=== PATIENT | female | born 1965 | race Caucasian/White ===

== ENCOUNTER 2023-03-31 10:25 | Inpatient (IN) | payer OTHER, SELFPAY ==
[2023-03-31] VITALS (13 sets, daily range): BP systolic 132–172; BP diastolic 76–89; PULSE 66–87; RESP 16–20; TEMP 36.6–36.8; O2SAT 95–100; BMI 27.2
--- NOTE | 2023-03-31 10:26 | XRR_ITS ---
PROCEDURE INFORMATION: Exam: XR Left Hip Exam date and time: 03/31/2023 10:36 AM Age: 57 years old Clinical indication: Injury or trauma; Fall; Blunt trauma (contusions or hematomas); Left; Hip pain. TECHNIQUE: Imaging protocol: Radiologic exam of the left hip. Views: 2 views hip with pelvis when performed. COMPARISON: No relevant prior studies available. FINDINGS: Bones/joints: Impacted fracture of the left femoral neck with considerable varus deformity. The femoral neck is displaced superiorly approximately 1 cm relative to the femoral head. No other osseous abnormalities or fractures involving the left hip. No left hip dislocation. Soft tissues: Unremarkable. XR/XR hip LT 2-3V wo/w pel* [id number] IMPRESSION: Acute left femoral neck fracture as above.
--- NOTE | 2023-03-31 10:26 | XRR_ITS ---
PROCEDURE INFORMATION: Exam: XR Chest Exam date and time: 03/31/2023 10:36 AM Age: 57 years old Clinical indication: Injury or trauma; Fall; Blunt trauma (contusions or hematomas). Chest pain. TECHNIQUE: Imaging protocol: Radiologic exam of the chest. Views: 1 view. COMPARISON: No relevant prior studies available. FINDINGS: Lungs: Unremarkable. No consolidation. Pleural spaces: Unremarkable. No pleural effusion. No pneumothorax. Heart/Mediastinum: Unremarkable. No cardiomegaly. Bones/joints: Mild thoracic scoliosis. XR/XR chest 1V portable [id number] IMPRESSION: No acute disease.
--- NOTE | 2023-03-31 10:30 | ED_ITS ---
HPI - Fall General: Chief Complaint: Extremity Injury, Lower Stated Complaint: LEFT HIP PAIN S/P FALL Time Seen by Provider: 03/31/23 10:26 Source: patient and EMS Mode of arrival: EMS Limitations: no limitations History of Present Illness: 57-year-old female states that she had stepped out of the back porch and missed a step and fell onto her left hip she has been having hip pain since then she not able to stand states the pain is sharp in nature rates it a 7 out of 10. She denies any other injuries with the fall denies hitting her head denies any neck pain Associated symptoms-after fall: Denies abdominal pain, chest pain, headache(s) or neck pain Review of Systems Const: Denies: fever(s) or chills ENMT: Denies: throat pain or dental pain Card: Denies: chest pain Resp: Denies: dyspnea GI: Denies: abdominal pain, nausea, vomiting or diarrhea Musc: Reports: extremity pain; Denies: neck pain or back pain Skin/Breast: Denies: rash Neuro: Denies: headache(s) Physical Exam Const: COMMON NORMALS: no acute distress, patient oriented x3 and healthy appearing HENMT: COMMON NORMALS: normocephalic and atraumatic HEAD & SCALP: normocephalic and atraumatic Neck/C-Spine: COMMON NORMALS: full ROM and supple Chest: COMMONS NORMALS: normal inspection of the chest and normal palpation of entire chest wall Resp: COMMON NORMALS: normal respiratory effort, No retractions, No use of accessory muscles and clear to auscultation bilaterally AUSCULTATION: clear to auscultation bilaterally Cardio: COMMON NORMALS: regular rate, regular rhythm and No murmurs present (Cardio) RATE: regular rate RHYTHM: regular rhythm Extremity: NARRATIVE EXTREMITY EXAM: Tenderness noted to left hip Neuro: COMMON NORMALS: patient oriented x3, moves all extremities and no focal motor deficits Psych: COMMON NORMALS: mental status grossly normal, Normal thought process present and cooperative THOUGHT PROCESS: Normal thought process present Skin: COMMON NORMALS: no rashes or lesions noted and no wounds GENERAL SKIN EXAM: no rashes or lesions noted Course Vital Signs: Vital signs: Vital Signs Temperature 97.9 F 03/31/23 10:27 Pulse Rate 74 03/31/23 10:27 Respiratory Rate 18 03/31/23 10:33 Blood Pressure 172/86 03/31/23 10:27 Pulse Oximetry 96 03/31/23 10:33 Oxygen Delivery Me thod Room Air 03/31/23 10:27 MDM - Fall Medical Decision Making Patient presents here with a left hip fracture from a fall she had no other injuries spoke to orthopedist along with hospitalist will admit at this time XR interpretation done by ED provider, pending radiology final review ED provider radiology interpretation(s): xr L hip left hip fx Discharge Plan Discharge Patient Disposition: Admitted As Inpatient Clinical Impression: Fracture of hip Condition: Stable Prescriptions: No Action Plavix 75 mg Tablet 75 mg PO BEDTIME lisinopril 10 mg tablet 10 mg PO BEDTIME Tylenol PM Extra Strength 25-500 mg Tablet 2 tab PO BEDTIME Vitamin D3 25 mcg (1,000 unit) Tablet 50 mcg PO BEDTIME Aspir-81 81 mg Tablet,Delayed Release (Dr/Ec) 81 mg PO BEDTIME Patient Instructions: Opioid Safety, Pain Management Coding Level of Care Code ED 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
[2023-03-31] MEDS: HYDROmorphone 1 mg/mL INJ 1 mL IVP ×5 (10:33→23:10)
[2023-03-31 11:38] LABS: Basophils # 0.1 10^3/uL (0.0-0.1); Basophils % 1.4 %; Eosinophils # 0.2 10^3/uL (0.0-0.8); Eosinophils % 3.6 %; Hematocrit 40.3 % (36-47); Lymphocytes % 34.6 %; Mean Corpuscular Hemoglobin 29.1 pg (27-33); Mean Platelet Volume 10.5 fL (7.4-10.4); Monocytes # 0.5 10^3/uL (0.2-0.9); Monocytes % 7.7 %; Neutrophils # 3.01 10^3/uL (1.8-7.7); Neutrophils % 51.8 %; Nucleated Red Blood Cells % 0 %; Platelet Count 203 10^3/cmm (157-399); Red Blood Count 4.43 10^6/uL (3.85-5.65); Red Cell Distribution Width 12.6 % (12.1-15.1); White Blood Count 5.81 10^3/uL (3.29-11.43)
[2023-03-31 11:41] LABS: INR 0.87 (0.8-1.2)
[2023-03-31 11:50] LABS: Alanine Aminotransferase 21 U/L (0-33); Albumin Level 4.2 g/dL (3.5-5.2); Alkaline Phosphatase 77 U/L (35-105); Anion Gap 12.1 (5-19); Aspartate Amino Transferase 16 U/L (0-32); Blood Urea Nitrogen 16 mg/dL (6-20); Calcium 9.2 mg/dL (8.5-10.5); Carbon Dioxide 29 mmol/L (22-29); Chloride 104 mmol/L (98-107); Globulin 2.4 g/dL (1.3-4.6); Glomerular Filtration Rate 85.6 mL/min (90-130); Glucose 118 mg/dL (65-115); Osmolality Calculated 294 mOsm/kg (285-295); Potassium 4.1 mmol/L (3.5-5.1); Sodium 141 mmol/L (136-145); Total Bilirubin 0.6 mg/dL (0.15-1.2); Total Protein 6.6 g/dL (6.6-8.7)
[2023-03-31] MEDS: morphine 4 mg/mL SDV 1 mL 2 MG IVP (14:18)
[2023-03-31] MEDS: pantoprazole 40 mg SDV IVP (14:18)
[2023-03-31] MEDS: lactated ringers 1,000 ML 100 ML IV (14:19)
--- NOTE | 2023-03-31 16:00 | PC.OT ---
Received referral for OT evaluation. Patient waiting surgery for left hip fx. Plan to attempt OT eval after hip surgery.
--- NOTE | 2023-03-31 16:51 | P.HP_ITS ---
Providers/Chief Complaint Admitting Physician: Anand Santizo DO Chief Complaint: LEFT HIP PAIN S/P FALL History of Present Illness Katelynn Watts is a 57 year old female with a past medical history of CAD, stent placement, hypertension, who presented to the ED for left hip pain after a fall. Patient reports that she and her were visiting the area from [facility], and were staying at an air B&B. Patient states that she was going outside this morning whenever she missed one of the steps, fell and landed on her left hip. Patient states that she had immediate severe pain. She and her called EMS and patient was taken to [facility] for evaluation. In the ER, an x-ray of the left hip was obtained demonstrating an acute fracture of the left femoral neck. ER did contact orthopedics, and they have agreed to see and evaluate the patient, with plan for surgical intervention tomorrow. Patient states that she did have breakfast this morning. Labs were otherwise unremarkable. A chest x-ray was obtained and was negative for acute cardiopulmonary concerns. She was given IV pain medication in the ER which did help to alleviate some of her pain. She notes that she is on aspirin and Plavix for a recent stent placement. These medications were held in preparation for surgery tomorrow. Review of Systems General: Reports: 10 or more systems reviewed and unremarkable except in HPI and below Const: Denies: fever(s) or chills Eyes: Denies: change in vision Card: Denies: chest pain or palpitations Resp: Denies: dyspnea GI: Denies: abdominal pain, nausea or vomiting : Denies: flank pain Musc: Reports: extremity pain (Left hip pain) Neuro: Denies: headache(s) Medications/Allergies Home Medications Medication Instructions Recorded Confirmed Last Taken Type aspirin 81 mg tablet,delayed 81 mg PO BEDTIME 03/31/23 03/31/23 03/30/23 History release cholecalciferol (vitamin D3) 25 50 mcg PO BEDTIME 03/31/23 03/31/23 03/30/23 History mcg (1,000 unit) tablet (Vitamin D3) clopidogrel 75 mg tablet (Plavix) 75 mg PO BEDTIME 03/31/23 03/31/23 03/30/23 History diphenhydramine 25 2 tab PO BEDTIME 03/31/23 03/31/23 03/30/23 History mg-acetaminophen 500 mg tablet (Tylenol PM Extra Strength) lisinopril 10 mg tablet 10 mg PO BEDTIME 03/31/23 03/31/23 03/30/23 History Allergies Allergy/AdvReac Type Severity Reaction Status Date / Time Sulfa (Sulfonamide Allergy Unknown Verified 03/31/23 10:48 Antibiotics) Vitals/I&O/Wt Last Vital Signs Temp 97.9 F 03/31/23 12:30 Pulse 78 03/31/23 14:00 Resp 16 03/31/23 14:18 BP 132/76 03/31/23 12:30 Pulse Ox 97 03/31/23 12:30 O2 Del Method Nasal Cannula 03/31/23 12:45 Weight last 48 hrs Weight 190 lb Physical Exam Narrative: General: Cooperative patient in no apparent distress. Well developed. HEENT: Normocephalic, Atraumatic. External ears normal. Nasal passages patent without drainage. MMM. Heart: RRR. Resp: LCTA. No respiratory distress, no use of accessory muscles. Abd: Soft, non-tender. Non-distended. Extremities: Left hip is swollen, tender, painful to the touch. Range of motion and muscle testing were deferred. Skin: No rash or lesions on exposed areas. Urinary Catheter Management: Villatoro: Cath Placed During This Visit: yes Urinary Catheter Date of Insertion: 03/31/23 Urinary Catheter Time of Insertion: 14:50 Data 03/31/23 11:01 03/31/23 11:01 A&P Assessment and plan (1) Fracture of femoral neck, left: (2) Essential hypertension: (3) CAD (coronary artery disease): (4) Hypovitaminosis D: Plan 57-year-old female admitted for acute left femoral neck fracture. We will admit to [facility]. Orthopedics is consulted and planning for surgical fixation tomorrow. Will allow for diet today and NPO after midnight. Continue with IV analgesia. She is doing well on Dilaudid. Hold Plavix and do SCD's for VTE PPx. Will start on LR for IVF's. Continue home medications for hypertension. Protonix for GI prophylaxis. Will order physical and Occupational Therapy to evaluate and treat. They may start this once patient is postoperative. Code Status: Full IVF: LR at 100 DVT PPx: SCDs GI PPx: Protonix ABx: None Diet: N.p.o. after midnight Discharge plan: To be determined Attestations Medical Necessity Statement*: Will need inpatient stay for acute Left hip fracture with plan for surgical fixation on 04/01/23. Coding Level of Care Code Acute Code for Chg Fwd Moderate MDM includes number and complexity of problems actively addressed during encounter, amount and/or complexity of data reviewed/ordered and described risk of complication, morbidity or mortality of management as documented Diagnoses Fracture of femoral neck, left S72.002A Essential hypertension I10 CAD (coronary artery disease) I25.10 Hypovitaminosis D E55.9
[2023-03-31] MEDS: aspirin 81 mg EC Tablet PO (20:11)
[2023-03-31] MEDS: lisinopril 10 mg Tablet PO (20:11)
[2023-04-01] VITALS (24 sets, daily range): BP systolic 114–146; BP diastolic 49–80; PULSE 69–90; RESP 15–25; TEMP 36.6–37; O2SAT 91–99
[2023-04-01] MEDS: lactated ringers 1,000 ML 100 ML IV (00:29)
[2023-04-01] MEDS: HYDROmorphone 1 mg/mL INJ 1 mL IVP ×2 (02:46→05:22)
[2023-04-01 05:29] LABS: Basophils # 0.1 10^3/uL (0.0-0.1); Basophils % 0.7 %; Eosinophils # 0.2 10^3/uL (0.0-0.8); Eosinophils % 2.2 %; Hematocrit 38.1 % (36-47); Lymphocytes # 1.5 10^3/uL (0.8-4.8); Mean Corpuscular HGB Conc 31.8 g/dL (30-55); Mean Corpuscular Hemoglobin 28.9 pg (27-33); Mean Corpuscular Volume 91.1 fl (85-98); Monocytes # 0.5 10^3/uL (0.2-0.9); Monocytes % 6.3 %; Neutrophils # 6.13 10^3/uL (1.8-7.7); Neutrophils % 72.4 %; Nucleated Red Blood Cells % 0 %; Platelet Count 227 10^3/cmm (157-399); Red Blood Count 4.18 10^6/uL (3.85-5.65); Red Cell Distribution Width 12.6 % (12.1-15.1); White Blood Count 8.46 10^3/uL (3.29-11.43)
[2023-04-01 05:44] LABS: Anion Gap 11.3 (5-19); Blood Urea Nitrogen 10 mg/dL (6-20); Calcium 8.9 mg/dL (8.5-10.5); Carbon Dioxide 29 mmol/L (22-29); Chloride 99 mmol/L (98-107); Glomerular Filtration Rate 85.6 mL/min (90-130); Glucose 132 mg/dL (65-115); Osmolality Calculated 281 mOsm/kg (285-295); Potassium 4.3 mmol/L (3.5-5.1); Sodium 135 mmol/L (136-145)
--- NOTE | 2023-04-01 06:43 | PM.CONSULT ---
Providers/Reason For Consult Consulting Physician/Specialty*: Orthopedics Reason for Consult*: Left Hip Attending Physician: Anand Santizo DO History of Present Illness History of Present Illness Katelynn Watts is a 57 year old female presented following a fall affecting her left hip. She is a [facility] vacationer staying at an air B&B where she lost her balance on a step fell sustaining injury to her left hip felt immediate pain with inability to move without sharp stabbing pain she presented to the emergency room where x-rays confirmed a left femoral neck fracture that was displaced. She was admitted for more definitive management orthopedics was consulted. She has a history of stents takes Plavix. Otherwise states she has been healthy. She was evaluated in room 263 with no family present. Still complaining of sharp stabbing pain to the left hip with movement making it much worse. Denies any loss of conscious in the fall. Denies any neck or back pain. Ranks the pain as 7 out of 10 on the pain scale with movement. Rest gives her some temporary relief. She denies any alcohol use other than socially denies any tobacco or drug use. Review of Systems General: Reports: 10 or more systems reviewed and unremarkable except in HPI and below Const: Denies: fever(s) or chills Eyes: Denies: change in vision Card: Denies: chest pain or palpitations Resp: Denies: dyspnea GI: Denies: abdominal pain, nausea or vomiting : Denies: flank pain Musc: Reports: extremity pain (Left hip pain) Neuro: Denies: headache(s) Medications/Allergies Home Medications Medication Instructions Recorded Confirmed Last Taken Type aspirin 81 mg tablet,delayed 81 mg PO BEDTIME 03/31/23 03/31/23 03/30/23 History release cholecalciferol (vitamin D3) 25 50 mcg PO BEDTIME 03/31/23 03/31/23 03/30/23 History mcg (1,000 unit) tablet (Vitamin D3) clopidogrel 75 mg tablet (Plavix) 75 mg PO BEDTIME 03/31/23 03/31/23 03/30/23 History diphenhydramine 25 2 tab PO BEDTIME 03/31/23 03/31/23 03/30/23 History mg-acetaminophen 500 mg tablet (Tylenol PM Extra Strength) lisinopril 10 mg tablet 10 mg PO BEDTIME 03/31/23 03/31/23 03/30/23 History Allergies Allergy/AdvReac Type Severity Reaction Status Date / Time Sulfa (Sulfonamide Allergy Unknown Verified 03/31/23 10:48 Antibiotics) Current Medications Generic Name Dose Route Start Last Admin Trade Name Bill PRN Reason Stop Dose Admin Aspirin 81 mg 03/31/23 21:00 03/31/23 20:11 Aspirin 81 Mg Ec Tablet PO 81 mg BEDTIME ROSALVA Administration Hydromorphone HCl 1 mg 03/31/23 15:10 04/01/23 05:22 Hydromorphone 1 Mg/Ml Inj 1 Ml IVP 1 mg Q2H PRN Administration SEVERE PAIN Lactated Ringer's 1,000 mls @ 100 mls/hr 03/31/23 12:30 04/01/23 00:29 Lactated Ringers IV 100 mls/hr .Q10H ROSALVA Administration Lisinopril 10 mg 03/31/23 21:00 03/31/23 20:11 Lisinopril 10 Mg Tablet PO 10 mg BEDTIME ROSALVA Administration Pantoprazole Sodium 40 mg 03/31/23 12:30 03/31/23 14:18 Pantoprazole 40 Mg Sdv IVP 40 mg Q24H ROSALVA Administration Vitals/I&O/Wt Last Vital Signs Temp 98.2 F 04/01/23 05:00 Pulse 79 04/01/23 06:00 Resp 18 04/01/23 05:22 BP 146/75 04/01/23 05:00 Pulse Ox 92 04/01/23 05:00 O2 Del Method Nasal Cannula 03/31/23 20:54 O2 Flow Rate 2 03/31/23 20:54 03/31/23 03/31/23 04/01/23 14:59 22:59 06:59 Intake Total 360 / 360 950 / 1310 Output Total 800 / 800 1000 / 1800 Balance -440 / -440 -50 / -490 Weight last 48 hrs Weight 190 lb Physical Exam Narrative: Patient is alert orient x3 has good general appearance normal mood and affect. Mild acute distress with movement of the left lower extremity. She has no palpable pain in the cervical thoracic or lumbar spine. Palpable pain over the left hip nontender over the right. She has positive logroll on the left negative on the right. Wiggles all digits on her lower extremities. Toes are warm good cap refill. Calves are supple no medial thigh tenderness. Dorsalis pedis posterior tibial pulses are palpable she is full range of motion of the right lower extremity. She can dorsiflex and plantarflex both ankles Problem. Full range of motion of both upper extremities at the shoulders elbows and wrists hands warm good cap refill radial pulses are palpable. HENMT: COMMON NORMALS: normocephalic and atraumatic HEAD & SCALP: normocephalic and atraumatic Resp: COMMON NORMALS: normal respiratory effort Cardio: COMMON NORMALS: regular rate and regular rhythm RATE: regular rate RHYTHM: regular rhythm GI: COMMON NORMALS: Soft to palpation and non-tender PALPATION: Yes Soft to palpation : COMMON NORMALS: Yes no CVA tenderness BLADDER/KIDNEY EXAM: Yes no CVA tenderness Back/Pelvis: COMMON NORMALS: no CVA tenderness Psych: COMMON NORMALS: mental status grossly normal and cooperative Urinary Catheter Management: Villatoro: Cath Placed During This Visit: yes Reason for Continuing Indwelling Catheter: Required Immobilization for Trauma or Surgery or Anesthesia Urinary Catheter Date of Insertion: 03/31/23 Urinary Catheter Time of Insertion: 14:50 Data 04/01/23 05:08 04/01/23 05:08 A&P Assessment and plan (1) Fracture of femoral neck, left: Discussed the x-rays with the patient. Discussed her age which route recommend a total hip replacement on the left. Dr. Cabrales was in to discuss the risks and benefits with her as well. We will proceed with left total hip arthroplasty. More than 50% of the time spent with the patient today involved coordination of care, counseling and discussion of conservative versus surgical treatment options. Total amount of time spent with the patient was 34 minutes. Qualifiers: Encounter type: initial encounter Fracture type: closed Qualified Code(s): S72.002A - Fracture of unspecified part of neck of left femur, initial encounter for closed fracture Coding Level of Care Code Acute Code for [facility] Fwd Diagnoses Fracture of femoral neck, left S72.002A Encounter type: initial encounter Fracture type: closed Time Spent (min) 34
--- NOTE | 2023-04-01 07:53 | PC.OT ---
Orders received to evaluate and treat for OT. Pt. to have surgery this afternoon. Evaluation on hold until after surgery.
--- NOTE | 2023-04-01 07:54 | P.ANESUD_ITS ---
Pre-Anesthetic Update Pre-Anesthetic Assessment: Date of Surgery/Procedure: 04/01/23 Preop Darleen gnosis: Displaced left femoral neck fracture Proposed Procedure: Operation Date: 04/01/23 15:30 Proposed Procedures p Left total hip arthroplasty(Left) - Jose Cabrales DO Last Intake: Intake Last Liquid Date 03/31/23 Last Liquid Time 23:55 Last Solid Date 03/31/23 Last Solid Time 08:00 Labs Last 48hrs: Short CBC 03/31/23 04/01/23 Range/Units 11:01 05:08 WBC 5.81 8.46 (3.29-11.43) 10^ 3/uL Hgb 12.90 12.10 (11.27-16.99) g/ dL Hct 40.3 38.1 (36-47) % MCV 91.0 91.1 (85-98) fl Plt Count 203 227 (157-399) 10^3/c mm Neut % (Auto) 51.8 72.4 % Neut # (Auto) 3.01 6.13 (1.8-7.7) 10^3/u L BMP 03/31/23 04/01/23 11:01 05:08 Sodium 141 135 L Potassium 4.1 4.3 Chloride 104 99 Carbon Dioxide 29 29 BUN 16 10 Creatinine 0.7 0.7 Glucose 118 H 132 H Calcium 9.2 8.9 Liver Function 03/31/23 Range/Units 11:01 Total Bilirubin 0.6 (0.15-1.2) mg/dL AST 16 (0-32) U/L ALT 21 (0-33) U/L Alkaline Phosphata se 77 (35-105) U/L Albumin 4.2 (3.5-5.2) g/dL Coags 03/31/23 11:01 PT 12.00 L INR 0.87 Vitals: Temperature 98.2 F 04/01/23 05:00 Temperature Source Oral 03/31/23 16:00 Pulse Rate 79 04/01/23 06:00 Respiratory Rate 18 04/01/23 05:22 Respiratory Effort Spontaneous, Non- Labored 04/01/23 05:22 Respiratory Depth Normal 04/01/23 05:22 Respiratory Patter n Normal 03/31/23 20:00 Blood Pressure 146/75 04/01/23 05:00 Blood Pressure Jenna n 98 04/01/23 05:00 Pulse Oximetry 92 04/01/23 05:00 Oxygen Delivery Me thod Nasal Cannula 03/31/23 20:54 Oxygen Flow Rate 2 03/31/23 20:54 Exam: Pre-Anes Outpt Exam: alert, oriented x 3, clear to auscultation bilaterally and regular rate & rhythm Cardiac Studies: No Data to Display
[2023-04-01] MEDS: sodium chloride 0.9% 1,000 ML 30 ML IV (07:58)
--- NOTE | 2023-04-01 07:58 | ANES.PREANE2 ---
Pre-Anesthetic Assessment Height/Weight: Height 1.78 m Weight 86.183 kg Temp Pulse Resp BP Pulse Ox O2 Del Method O2 Flow Rate 98.2 F 79 18 146/75 92 Nasal Cannula 2 04/01/23 05:00 04/01/23 06:00 04/01/23 05:22 04/01/23 05:00 04/01/23 05:00 03/31/23 20:54 03/31/23 20:54 Preop Diagnosis: Displaced left femoral neck fracture Operation Date: 04/01/23 15:30 Proposed Procedures p Left total hip arthroplasty(Left) - Jose Cabrales, Familial anesthetic complications: PONV Was Beta Roge taken within 24 hours: N/A Was Clonidine taken within 24 hours: N/A Last intake: Intake Last Liquid Date 03/31/23 Last Liquid Time 23:55 Last Solid Date 03/31/23 Last Solid Time 08:00 Social No tobacco Exam alert, oriented x 3, clear to auscultation bilaterally and regular rate & rhythm Airway Submandibular: within normal limits Cervical ROM: within normal limits Mallampati: Class II Pulmonary None reported CV/HEM Coronary Artery Disease and Hypertension Cardiac stent placed ~ 2015. On plavix. Last taken 1.5 days ago Lisinopril None reported Hepatic None reported GI None reported Metabolic Diabetes Mellitus pre-diabetes [facility] None reported Anesthetic Plan ASA status: 3 Anesthesia: General Risk of > 500 ml blood loss (7ml/kg in children): Yes, adequate IV access and fluids planned Other Pertinent Information Ok with blood transfusion if necessary. Medications/Allergies Home Medications Medication Instructions Recorded Confirmed Last Taken Type aspirin 81 mg tablet,delayed 81 mg PO BEDTIME 03/31/23 03/31/23 03/30/23 History release cholecalciferol (vitamin D3) 25 50 mcg PO BEDTIME 03/31/23 03/31/23 03/30/23 History mcg (1,000 unit) tablet (Vitamin D3) clopidogrel 75 mg tablet (Plavix) 75 mg PO BEDTIME 03/31/23 03/31/23 03/30/23 History diphenhydramine 25 2 tab PO BEDTIME 03/31/23 03/31/23 03/30/23 History mg-acetaminophen 500 mg tablet (Tylenol PM Extra Strength) lisinopril 10 mg tablet 10 mg PO BEDTIME 03/31/23 03/31/2303/30/23 History Allergies Allergy/AdvReac Type Severity Reaction Status Date / Time Sulfa (Sulfonamide Allergy Unknown Verified 03/31/23 10:48 Antibiotics) Current Medications Generic Name Dose Route Start Last Admin Trade Name Bill PRN Reason Stop Dose Admin Aspirin 81 mg 03/31/23 21:00 03/31/23 20:11 Aspirin 81 Mg Ec Tablet PO 81 mg BEDTIME ROSALVA Administration Hydromorphone HCl 1 mg 03/31/23 15:10 04/01/23 05:22 Hydromorphone 1 Mg/Ml Inj 1 Ml IVP 1 mg Q2H PRN Administration SEVERE PAIN Lactated Ringer's 1,000 mls @ 100 mls/hr 03/31/23 12:30 04/01/23 00:29 Lactated Ringers IV 100 mls/hr .Q10H ROSALVA Administration Lisinopril 10 mg 03/31/23 21:00 03/31/23 20:11 Lisinopril 10 Mg Tablet PO 10 mg BEDTIME ROSALVA Administration Pantoprazole Sodium 40 mg 03/31/23 12:30 03/31/23 14:18 Pantoprazole 40 Mg Sdv IVP 40 mg Q24H ROSALVA Administration Data Anesthesia 04/01/23 05:08 04/01/23 05:08 Short CBC 03/31/23 04/01/23 Range/Units 11:01 05:08 WBC 5.81 8.46 (3.29-11.43) 10^3/uL Hgb 12.90 12.10 (11.27-16.99) g/dL Hct 40.3 38.1 (36-47) % MCV 91.0 91.1 (85-98) fl Plt Count 203 227 (157-399) 10^3/cmm Neut % (Auto) 51.8 72.4 % Neut # (Auto) 3.01 6.13 (1.8-7.7) 10^3/uL BMP 03/31/23 04/01/23 11:01 05:08 Sodium 141 135 L Potassium 4.1 4.3 Chloride 104 99 Carbon Dioxide 29 29 BUN 16 10 Creatinine 0.7 0.7 Glucose 118 H 132 H Calcium 9.2 8.9 Liver Function 03/31/23 Range/Units 11:01 Total Bilirubin 0.6 (0.15-1.2) mg/dL AST 16 (0-32) U/L ALT 21 (0-33) U/L Alkaline Phosphatase 77 (35-105) U/L Albumin 4.2 (3.5-5.2) g/dL Coags 03/31/23 11:01 PT 12.00 L INR 0.87 Cardiac Studies: No Data to Display
[2023-04-01] MEDS: scopolamine 1.5 Patch 1 PATCH TRANSDERMA (07:59)
[2023-04-01] MEDS: ondansetron 2 mg/ML SDV 2 mL 4 MG IVP (07:59)
--- NOTE | 2023-04-01 08:33 | W.PM.OPSUD ---
Surgery/Procedure H&P Update DATE OF PROCEDURE: April 01, 2023 DATE H&P PERFORMED: 04/01/23 H&P UPDATE INFORMATION: I have reviewed H&P completed within last 30 days, I have examined patient prior to procedure and No changes to prior documentation PREOP DIAGNOSIS: Displaced left femoral neck fracture PLANNED PROCEDURE: Operation Date: 04/01/23 15:30 Proposed Procedures p Left total hip arthroplasty(Left) - Jose Cabrales DO
[2023-04-01] MEDS: ceFAZolin 2,000 MG in sodium chloride 0.9% (plus) 50 ML 100 MG IV ×2 (09:05→17:30)
[2023-04-01] MEDS: vancomycin 1,000 MG SDV 1000 MG XX (10:07)
--- NOTE | 2023-04-01 10:44 | PM.PN ---
Subjective Subjective: Postop day 0 Vitals/I&O/Wt Last Vital Signs Temp 98.2 F 04/01/23 05:00 Pulse 79 04/01/23 06:00 Resp 18 04/01/23 05:22 BP 146/75 04/01/23 05:00 Pulse Ox 92 04/01/23 05:00 O2 Del Method Nasal Cannula 03/31/23 20:54 O2 Flow Rate 2 03/31/23 20:54 03/31/23 04/01/23 04/01/23 22:59 06:59 14:59 Intake Total 360 / 360 950 / 1310 1050 / 1050 Output Total 800 / 800 1000 / 1800 625 / 625 Balance -440 / -440 -50 / -490 425 / 425 Weight last 48 hrs Weight 86.183 kg Physical Exam Narrative: Pleasant and cooperative Euvolemic GCS 15 S1, S2 On 2 L nasal cannula Hemodynamic stable Abdomen soft Pleasant cooperative Urinary Catheter Management: Villatoro: Cath Placed During This Visit: yes Reason for Continuing Indwelling Catheter: Required Immobilization for Trauma or Surgery or Anesthesia Urinary Catheter Date of Insertion: 03/31/23 Urinary Catheter Time of Insertion: 14:50 Data 04/01/23 05:08 04/01/23 05:08 A&P Assessment and plan (1) Hypovitaminosis D: (2) CAD (coronary artery disease): (3) Essential hypertension: (4) Fracture of femoral neck, left: Qualifiers: Encounter type: initial encounter Fracture type: closed Qualified Code(s): S72.002A - Fracture of unspecified part of neck of left femur, initial encounter for closed fracture (5) Fracture of hip: Qualifiers: Encounter type: initial encounter Fracture type: closed Laterality: left Qualified Code(s): S72.002A - Fracture of unspecified part of neck of left femur, initial encounter for closed fracture Plan Mechanical fall causing hip fracture Postop day 0 Opiates for pain management along bowel regimen Start DVT prophylaxis 6 hours after surgery Full code We will start diet after her surgery Monitor for any postop complications PT after her surgery Incentive spirometer to prevent atelectasis Oxygen to room air We may continue lisinopril for hypertension after surgery Attestations Medical Necessity Statement*: Discharge in next 24 hours Diagnoses Hypovitaminosis D E55.9 CAD (coronary artery disease) I25.10 Essential hypertension I10 Fracture of femoral neck, left S72.002A Encounter type: initial encounter Fracture type: closed Fracture of hip S72.002A Encounter type: initial encounter Fracture type: closed Laterality: left
--- NOTE | 2023-04-01 11:04 | XR_ITS ---
WS: [id number] XR hip LT 1V wo/w pel [id number] REASON FOR EXAM: post op FINDINGS: Total left hip arthroplasty. The components of the prosthesis are intact and in proper position and alignment. No significant bone abnormality. IMPRESSION: Total left hip arthroplasty without abnormality.
--- NOTE | 2023-04-01 11:10 | P.OP_ITS ---
Operative Report Date of procedure: April 01, 2023 Pre-op diagnosis: Left femoral neck fracture Post-op diagnosis: same Procedure done: Left total hip arthroplasty Surgeon: Jose Cabrales DO Estimated blood loss (mL): 350 Procedure: Left total hip arthroplasty Patient brought to the operative suite after undergoing anesthesia was placed in the lateral hips position with the left side up. All areas impingement were well-padded. Patient was then prepped and draped normal sterile fashion. Skin incision is made over the lateral hip. IT band was split. A modified Cheema approach was used. The abductors and capsule were taken anteriorly. The femoral neck cut was made approximately fingerbreadth above the lesser trochanter. The femoral head was then removed. Next attention was brought to cleaning the acetabulum. Anterior superior and posterior retractors were placed. The labrum was cut out with the Bovie and pickups. The fovea was clean. Next attention was brought to reaming the first reamer was used to medialize. And then the positioning the reamer in the appropriate position the past time was reamed to 46. The 46 liner was then placed. 1 screw was placed to hold the cup in place. A wire was then malleted into position. She was brought to the femur. A box office agent was used to open up the femur followed by canal finder followed by lateralizer. The canal was broached to 5. A #5 Accolade stem from [place] was inserted. The hip was then trialed with a neutral neck length and a 32 head. This felt to be in good position. Next the real head was placed. Hip was reduced. Hip was found to be stable in all positions. The hip was then closed in layered fashion with FiberWire #1 Vicryl 0 Vicryl and 2-0 Vicryl and benedicto. Deep drain was placed. Vancomycin powder was placed. Sterile dressings were applied patient was transferred to the PACU in stable condition.
--- NOTE | 2023-04-01 17:09 | ANE.PACU2 ---
Inpatient post-anesthesia follow up: Airway intact: Yes Vital signs: Temperature 97.8 F Pulse Rate 82 Respiratory Rate 15 Blood Pressure 138/78 Pulse Oximetry 95 Oxygen Delivery Me thod [ Nasal Cannula Current Rate & Del sara] Oxygen Delivery Me thod Room Air Oxygen Flow Rate [ Current Rate 2 & Delivery] Oxygen Flow Rate 2 Fraction of Inspir ed Oxygen Hydration adequate: Yes Nausea and vomiting: No Pain level: 3 Mental status: Baseline
[2023-04-01] MEDS: oxyCODONE 5 mg IR Tab/Cap 10 MG PO ×2 (17:31→21:27)
[2023-04-01] MEDS: enoxaparin 40 mg/0.4 mL Syringe SUBCUT (21:27)
[2023-04-01] MEDS: lisinopril 10 mg Tablet PO (21:27)
[2023-04-01] MEDS: aspirin 81 mg EC Tablet PO (21:27)
[2023-04-02] VITALS (10 sets, daily range): BP systolic 99–130; BP diastolic 60–74; PULSE 76–97; RESP 15–19; TEMP 36.6–37; O2SAT 93–97
[2023-04-02] MEDS: ceFAZolin 2,000 MG in sodium chloride 0.9% (plus) 50 ML 100 MG IV ×2 (00:44→08:41)
[2023-04-02 06:27] LABS: Basophils % 0.3 %; Eosinophils % 0.4 %; Hematocrit 32.7 % (36-47); Lymphocytes # 1.4 10^3/uL (0.8-4.8); Lymphocytes % 14.8 %; Mean Corpuscular HGB Conc 32.4 g/dL (30-55); Mean Corpuscular Hemoglobin 29.4 pg (27-33); Mean Corpuscular Volume 90.6 fl (85-98); Mean Platelet Volume 10.3 fL (7.4-10.4); Monocytes # 0.6 10^3/uL (0.2-0.9); Monocytes % 6.9 %; Neutrophils # 7.06 10^3/uL (1.8-7.7); Neutrophils % 77.2 %; Nucleated Red Blood Cells % 0 %; Platelet Count 194 10^3/cmm (157-399); Red Blood Count 3.61 10^6/uL (3.85-5.65); Red Cell Distribution Width 12.6 % (12.1-15.1); White Blood Count 9.16 10^3/uL (3.29-11.43)
[2023-04-02 06:58] LABS: Blood Urea Nitrogen 9 mg/dL (6-20); Calcium 8.7 mg/dL (8.5-10.5); Carbon Dioxide 27 mmol/L (22-29); Chloride 101 mmol/L (98-107); Glomerular Filtration Rate 102.3 mL/min (90-130); Glucose 142 mg/dL (65-115); Osmolality Calculated 281 mOsm/kg (285-295); Sodium 135 mmol/L (136-145)
--- NOTE | 2023-04-02 07:38 | P.PN_ITS ---
Subjective Subjective: POD 1 Patient resting comfortably. Mild left hip pain. Denies any chest pain shortness of breath. Denies lightheadedness or dizziness. Vitals/I&O/Wt Last Vital Signs Temp 98.5 F 04/02/23 04:00 Pulse 91 04/02/23 04:00 Resp 19 H 04/02/23 04:00 BP 130/71 04/02/23 04:00 Pulse Ox 95 04/02/23 04:00 O2 Del Method Room Air 04/02/23 04:00 O2 Flow Rate 2 04/01/23 14:09 04/01/23 04/02/23 04/02/23 22:59 06:59 14:59 Intake Total 410 / 3260 50 / 3310 Output Total 1750 / 4900 750 / 5650 Balance -1340 / -1640 -700 / -2340 Weight last 48 hrs Weight 190 lb Physical Exam Narrative: Patient is alert and orient x3 has good general appearance normal normal affect. Left hip incision is clean and dry with Hemovac drain intact. There is no signs of erythema or drainage no signs of infection. Good motor strength throughout both lower extremities. Fires in all motor groups. Skin is clear warm, feet are warm with good cap refill in all digits. Normal sensation to light touch. Calves are supple, no medial thigh tenderness, negative Homans' sign. No palpable edema peripherally. Urinary Catheter Management: Villatoro: Cath Placed During This Visit: yes Reason for Continuing Indwelling Catheter: Perioperative Use in Selected Surgeries Urinary Catheter Date of Insertion: 03/31/23 Urinary Catheter Time of Insertion: 14:50 Data 04/02/23 05:59 04/02/23 05:59 A&P Assessment and plan (1) Fracture of femoral neck, left: Physical therapy to evaluate with hip precautions. Continue Hemovac drain until tomorrow. Continue incentive spirometry for pulmonary toilet. environmental services specialist to arrange return to [facility]. Qualifiers: Encounter type: initial encounter Fracture type: closed Qualified Code(s): S72.002A - Fracture of unspecified part of neck of left femur, initial encounter for closed fracture Attestations Medical Necessity Statement*: Defer to medical team Coding Level of Care Code Acute Code for [facility] Fwd Diagnoses Fracture of femoral neck, left S72.002A Encounter type: initial encounter Fracture type: closed
[2023-04-02] MEDS: oxyCODONE 5 mg IR Tab/Cap 10 MG PO (08:40)
[2023-04-02] MEDS: sennosides-docusate Tablet 1 TAB PO (08:41)
--- NOTE | 2023-04-02 11:15 | PM.PN ---
Subjective Subjective: Patient is stating that she would like to watch how she does with physical therapy, she is afraid that her pain will get worse She will like to keep Villatoro catheter in for 1 more day PT session pending today No postop complication Patient is stating her pain at the time of evaluation was 10/10 Moderate blood noticed in the Hemovac, hemoglobin today 10.6, without hypotension or tachycardia Vitals/I&O/Wt Last Vital Signs Temp 98.5 F 04/02/23 07:47 Pulse 80 04/02/23 08:00 Resp 17 04/02/23 08:40 BP 128/66 04/02/23 07:47 Pulse Ox 93 04/02/23 08:00 O2 Del Method Room Air 04/02/23 08:00 O2 Flow Rate 2 04/02/23 08:00 04/01/23 04/02/23 04/02/23 22:59 06:59 14:59 Intake Total 410 / 3260 50 / 3310 290 / 290 Output Total 1750 / 4900 750 / 5650 0 / 0 Balance -1340 / -1640 -700 / -2340 290 / 290 Physical Exam Narrative: Patient is awake and alert Pleasant cough Scopolamine patch removed GCS 15 Abdomen soft Villatoro catheter in place Hemovac with moderate amount of blood Lower extremity no significant edema left leg slightly swollen as compared to right Urinary Catheter Management: Villatoro: Cath Placed During This Visit: yes Reason for Continuing Indwelling Catheter: Perioperative Use in Selected Surgeries Urinary Catheter Date of Insertion: 03/31/23 Urinary Catheter Time of Insertion: 14:50 Data 04/02/23 05:59 04/02/23 05:59 A&P Assessment and plan (1) Hypovitaminosis D: (2) Essential hypertension: (3) Fracture of femoral neck, left: Qualifiers: Encounter type: initial encounter Fracture type: closed Qualified Code(s): S72.002A - Fracture of unspecified part of neck of left femur, initial encounter for closed fracture (4) Fracture of hip: Qualifiers: Encounter type: initial encounter Fracture type: closed Laterality: left Qualified Code(s): S72.002A - Fracture of unspecified part of neck of left femur, initial encounter for closed fracture Plan Postop day 1 No postop complication Patient will like to keep Villatoro catheter in for 1 more day Pain management optimization needed Continue bowel regimen Patient tolerating diet Currently on room air Hemovac with moderate amount of drainage, hemoglobin has dropped but not hemodynamic instability Most likely she will be able to go back to her place with a walker or a cane Continue DVT prophylaxis reg diet Hypertension continue lisinopril Attestations Medical Necessity Statement*: Continue medical management Diagnoses Hypovitaminosis D E55.9 Essential hypertension I10 Fracture of femoral neck, left S72.002A Encounter type: initial encounter Fracture type: closed Fracture of hip S72.002A Encounter type: initial encounter Fracture type: closed Laterality: left
[2023-04-02 11:43] LABS: D Dimer 1.57 ug/mLFEU (0-0.59)
[2023-04-02] MEDS: HYDROcodone-acetaminophen 5-325 mg Tablet PO (15:43)
[2023-04-02] MEDS: aspirin 81 mg EC Tablet PO (22:07)
[2023-04-02] MEDS: lisinopril 10 mg Tablet PO (22:08)
[2023-04-02] MEDS: enoxaparin 40 mg/0.4 mL Syringe SUBCUT (22:08)
[2023-04-03] VITALS: BP 133/66; PULSE 64; RESP 17; TEMP 37.1; O2SAT 98
[2023-04-03 04:00] VITALS: BP 123/70; PULSE 91; RESP 16; TEMP 37.3; O2SAT 95
[2023-04-03 04:51] LABS: Basophils # 0.1 10^3/uL (0.0-0.1); Basophils % 0.6 %; Eosinophils # 0.2 10^3/uL (0.0-0.8); Eosinophils % 2.1 %; Hematocrit 31.1 % (36-47); Lymphocytes # 1.7 10^3/uL (0.8-4.8); Mean Corpuscular HGB Conc 31.8 g/dL (30-55); Mean Corpuscular Hemoglobin 29.2 pg (27-33); Mean Corpuscular Volume 91.7 fl (85-98); Mean Platelet Volume 10.3 fL (7.4-10.4); Monocytes # 0.6 10^3/uL (0.2-0.9); Monocytes % 6.5 %; Neutrophils # 6.75 10^3/uL (1.8-7.7); Neutrophils % 72.4 %; Nucleated Red Blood Cells % 0 %; Platelet Count 194 10^3/cmm (157-399); Red Blood Count 3.39 10^6/uL (3.85-5.65); Red Cell Distribution Width 12.8 % (12.1-15.1); White Blood Count 9.34 10^3/uL (3.29-11.43)
[2023-04-03 05:16] LABS: Blood Urea Nitrogen 11 mg/dL (6-20); Calcium 8.8 mg/dL (8.5-10.5); Carbon Dioxide 27 mmol/L (22-29); Chloride 101 mmol/L (98-107); Glomerular Filtration Rate 85.6 mL/min (90-130); Glucose 130 mg/dL (65-115); Osmolality Calculated 283 mOsm/kg (285-295); Sodium 136 mmol/L (136-145)
[2023-04-03 06:00] VITALS: PULSE 86
--- NOTE | 2023-04-03 06:48 | PM.PN ---
Subjective Subjective: POD 2 Patient up in the chair with no complaints. Denies chest pain shortness of breath. Vitals/I&O/Wt Last Vital Signs Temp 99.1 F 04/03/23 04:00 Pulse 86 04/03/23 06:00 Resp 16 04/03/23 04:00 BP 123/70 04/03/23 04:00 Pulse Ox 95 04/03/23 04:00 O2 Del Method Room Air 04/03/23 04:00 O2 Flow Rate 2 04/02/23 08:00 04/02/23 04/02/23 04/03/23 14:59 22:59 06:59 Intake Total 530 / 530 240 / 770 Output Total 0 / 0 100 / 100 1800 / 1900 Balance 530 / 530 140 / 670 -1800 / -1130 Physical Exam Narrative: Patient is alert and orient x3 has good general appearance normal normal affect.? Left hip incision is clean and dry with Hemovac drain intact. There is no signs of erythema or drainage no signs of infection.? Good motor strength throughout both lower extremities.? Fires in all motor groups.? Skin is clear warm, feet are warm with good cap refill in all digits.? Normal sensation to light touch.? Calves are supple,? no medial thigh tenderness, negative Homans' sign.? No palpable edema peripherally. Urinary Catheter Management: Villatoro: Cath Placed During This Visit: yes Reason for Continuing Indwelling Catheter: Perioperative Use in Selected Surgeries Urinary Catheter Date of Insertion: 03/31/23 Urinary Catheter Time of Insertion: 14:50 Data 04/03/23 04:10 04/03/23 04:10 A&P Assessment and plan (1) Fracture of femoral neck, left: Physical therapy to continue to mobilize with hip precautions. Discontinue Hemovac drain. Continue incentive spirometry for pulmonary toilet. We will arrange discharge when medically stable to travel back to [place]. Discussed with her to follow-up with an orthopedist for staple removal 2 weeks after surgery. Qualifiers: Encounter type: subsequent encounter Fracture type: closed Fracture healing: with routine healing Qualified Code(s): S72.002D - Fracture of unspecified part of neck of left femur, subsequent encounter for closed fracture with routine healing Attestations Medical Necessity Statement*: Defer to medical team Coding Level of Care Code Acute Code for [facility] Fwd Diagnoses Fracture of femoral neck, left S72.002D Encounter type: subsequent encounter Fracture type: closed Fracture healing: with routine healing
[2023-04-03 07:44] VITALS: BP 114/75; PULSE 94; RESP 18; TEMP 36.8; O2SAT 99
[2023-04-03] MEDS: sennosides-docusate Tablet 1 TAB PO (07:51)
[2023-04-03] MEDS: HYDROcodone-acetaminophen 5-325 mg Tablet PO (07:51)
[2023-04-03 08:00] VITALS: BP 114/75; PULSE 94; RESP 18; TEMP 36.8
--- NOTE | 2023-04-03 09:31 | PC.NURSE ---
Hemovac removed per Zach verbal order. Catheter intact. Minimal drainage to site. No swelling, redness, warmth.
--- NOTE | 2023-04-03 09:52 | P.DS_ITS ---
Discharge Providers Date of Admission: 03/31/23 11:00 Date of Discharge: April 03, 2023 Attending Provider at Admission: Anand Santizo DO Attending Provider at Discharge: Kathy Lambert MD Diagnoses at Discharge Discharge Diagnosis (1) Fracture of femoral neck, left: Status: Acute Qualifiers: Encounter type: subsequent encounter Fracture type: closed Fracture healing: with routine healing Qualified Code(s): S72.002D - Fracture of unspecified part of neck of left femur, subsequent encounter for closed fracture with routine healing Reason for Visit Reason for Visit: LEFT HIP PAIN S/P FALL Hospital Course Hospital Course 57-year female who was visiting her father in [place], she is from [facility], she fell and broke her hip, she was diagnosed with left femoral neck fracture status post intervention left total hip arthroplasty, no postoperative complication, patient is working with PT, will need a walker at the time of discharge, for DVT prophylaxis will need Eliquis 2.5 mg twice daily regimen for 30 days she is flying back to [place] on Thursday 04/05. Physical Exam 2 Narrative: Awake and alert GCS 15 Pleasant cooperative S1, S2 Currently on room air Working with physical therapist using a walker Urinary Catheter Management: Villatoro: Cath Placed During This Visit: yes Reason for Continuing Indwelling Catheter: Perioperative Use in Selected Surgeries Urinary Catheter Date of Insertion: 03/31/23 Urinary Catheter Time of Insertion: 14:50 Discharge Data Studies Completed and Pending Completed Studies During Hospitalization Category Date Time Status CXRP [XR chest 1V portable [id number]] Stat Exams 03/31/23 10:26 Completed XR hip LT 1V wo/w pel [id number] Routine Exams 04/01/23 11:04 Completed XR hip LT 2-3V wo/w pel* [id number] Stat Exams 03/31/23 10:26 Completed Radiology Impressions Chest X-Ray 03/31/23 10:26 IMPRESSION: No acute disease. Hip/Pelvis X-Ray 03/31/23 10:26 IMPRESSION: Acute left femoral neck fracture as above. Laboratory Results WBC 9.34 10^3/uL (3.29-11.43) 04/03/23 04:10 RBC 3.39 10^6/uL (3.85-5.65) L 04/03/23 04:10 Hgb 9.90 g/dL (11.27-16.99) L 04/03/23 04:10 Hct 31.1 % (36-47) L 04/03/23 04:10 MCV 91.7 fl (85-98) 04/03/23 04:10 MCH 29.2 pg (27-33) 04/03/23 04:10 MCHC 31.8 g/dL (30-55) 04/03/23 04:10 RDW 12.8 % (12.1-15.1) 04/03/23 04:10 Plt Count 194 10^3/cmm (157-399) 04/03/23 04:10 MPV 10.3 fL (7.4-10.4) 04/03/23 04:10 Neut % (Auto) 72.4 % 04/03/23 04:10 Lymph % (Auto) 18.0 % 04/03/23 04:10 [place] % (Auto) 6.5 % 04/03/23 04:10 Eos % (Auto) 2.1 % 04/03/23 04:10 Baso % (Auto) 0.6 % 04/03/23 04:10 Neut # (Auto) 6.75 10^3/uL (1.8-7.7) 04/03/23 04:10 Lymph # (Auto) 1.7 10^3/uL (0.8-4.8) 04/03/23 04:10 [place] # (Auto) 0.6 10^3/uL (0.2-0.9) 04/03/23 04:10 Eos # (Auto) 0.2 10^3/uL (0.0-0.8) 04/03/23 04:10 Baso # (Auto) 0.1 10^3/uL (0.0-0.1) 04/03/23 04:10 Nucleated RBC % (auto) 0 % 04/03/23 04:10 Nucleated RBCs # 0.0 /100WBC 04/03/23 04:10 PT 12.00 SECONDS (12.1-14.9) L 03/31/23 11:01 INR 0.87 (0.8-1.2) 03/31/23 11:01 D-Dimer 1.57 ug/mLFEU (0-0.59) H 04/02/23 05:59 Sodium 136 mmol/L (136-145) 04/03/23 04:10 Potassium 4.0 mmol/L (3.5-5.1) 04/03/23 04:10 Chloride 101 mmol/L (98-107) 04/03/23 04:10 Carbon Dioxide 27 mmol/L (22-29) 04/03/23 04:10 Anion Gap 12.0 (5-19) 04/03/23 04:10 BUN 11 mg/dL (6-20) 04/03/23 04:10 Creatinine 0.7 mg/dL (0.5-0.9) 04/03/23 04:10 GFR Calculation 85.6 mL/min (90-130) L 04/03/23 04:10 Glucose 130 mg/dL (65-115) H 04/03/23 04:10 Calculated Osmolality 283 mOsm/kg (285-295) L 04/03/23 04:10 Calcium 8.8 mg/dL (8.5-10.5) 04/03/23 04:10 Total Bilirubin 0.6 mg/dL (0.15-1.2) 03/31/23 11:01 AST 16 U/L (0-32) 03/31/23 11:01 ALT 21 U/L (0-33) 03/31/23 11:01 Alkaline Phosphatase 77 U/L (35-105) 03/31/23 11:01 Total Protein 6.6 g/dL (6.6-8.7) 03/31/23 11:01 Albumin 4.2 g/dL (3.5-5.2) 03/31/23 11:01 Globulin 2.4 g/dL (1.3-4.6) 03/31/23 11:01 Blood Type O Positive 04/01/23 08:23 Rho(D) Type Positive 04/01/23 08:23 Antibody Screen Negative 04/01/23 08:23 Vitals Last Vital Signs Temp 98.2 F 04/03/23 08:00 Pulse 94 04/03/23 08:00 Resp 18 04/03/23 08:00 BP 114/75 04/03/23 08:00 Pulse Ox 99 04/03/23 07:44 O2 Del Method Room Air 04/03/23 07:44 O2 Flow Rate 2 04/02/23 08:00 Discharge Plan Discharge Patient Disposition: Home Condition: Stable Prescriptions: New oxycodone 5 mg tablet 5 mg PO Q8H PRN (Reason: pain) Qty: 14 0RF Eliquis 2.5 mg tablet 2.5 mg PO BID Qty: 60 0RF sennosides-docusate sodium [Senna-S] 8.6-50 mg tablet 1 tab-cap PO DAILY Qty: 10 0RF Continued Plavix 75 mg Tablet 75 mg PO BEDTIME lisinopril 10 mg tablet 10 mg PO BEDTIME Tylenol PM Extra Strength 25-500 mg Tablet 2 tab PO BEDTIME Vitamin D3 25 mcg (1,000 unit) Tablet 50 mcg PO BEDTIME Held Aspir-81 81 mg Tablet,Delayed Release (Dr/Ec) 81 mg PO BEDTIME Hold Instructions: Resume on 05/08/23. Discharge Orders: Discharge Order (Routine); Ordered 04/03/23 Ordered By: Kathy Lambert Other Ambulatory Orders: DME: Walker (Order) Location: None Selected Ordered By: Kathy Lambert Referrals: Jose Cabrales DO [Physician] - Discharge Diet: Advance as tolerated Discharge Activity: Use walker/crutches as instructed Patient Instructions: Opioid Safety, Pain Management Activity Restrictions/Additional Instructions: PCP CHIARA LOZANO [phone] Patient's Health Concerns: You are being discharged from the hospital today during which time you have been under the care of Dr Cabrales. You had a Left/Right hip fracture. You were treated for this injury with a Left hip replacement. You may resume you normal diet (including any special diets as directed by your primary doctor) as well as your home medications. You should follow up with you primary doctor if you have any questions regarding medication you took prior to your stay in the hospital. You may take your pain medication as prescribed. After the first few days, take your pain medication as needed. Do not drive or drink alcohol while taking your pain medication. Your injury may increase your risk of developing a blood clot,or DVT, in your arm or leg. This could potentially dislodge and travel to your lungs and become a life threatening condition called apulmonary embolus,or PE. You have been prescribed eliquis to be taken to prevent this. Frequent movement of the legs will also help prevent this from occurring. If you develop any new or worsening cough, chestpain, bloody sputum or shortness of breath, call 911 or go to the EmergencyRoom. Always keep your surgical incision/dressing clean and dry. If you experience increasing pain at your incision site, redness, swelling, increasing discharge, foul odors, or fevers (greater than 100.4), night sweats or chills you should call the office at the above number. If you feel this is an emergency you should be evaluated in the Emergency Department of a nearby hospital. Orthopedic Patient Instructions Summary: Weight Bearing: WBAT continue total hip precautions. Activity: as tolerated. Diet: regular. Wound Care: Keep dressing clean and dry. Change as needed Anticoagulation: Lovenox Pain Medication: Take only as needed. Ice, rest and elevation will be of great benefit. Please plan to follow-up [facility] orthopedist in [place], [place] in 1-2 weeks. You will need to call the clinic [phone] to schedule. Do not hesitate to call the office with any questions or concerns. Discharge Attestations Time Spent in Discharge Care*: greater than 30 min Quality Metrics Clinical Quality Measures [ No reported AMI, CVA or VTE this stay] Coding Level of Care Code Acute Code for [facility] Fwd Diagnoses Fracture of femoral neck, left S72.002D Encounter type: subsequent encounter Fracture type: closed Fracture healing: with routine healing
[2023-04-03 12:44] VITALS: BP 114/75; PULSE 94; RESP 18; TEMP 36.8
== END 2023-04-03 12:49 | disposition home or self-care (01) | DRG 522 ==
LOC: ER 11:06 → MEDSURG 11:29
PROVIDERS: Orthopaedic Surgery; Admitting Provider Family Medicine; Emergency Provider Emergency Medicine; Visit Provider Internal Medicine
PROC: 0SRB0JZ Replacement of Left Hip Joint with Synthetic Substitute, Open Approach (ICD-10-PCS; CPT 27447; principal; 2023-04-01 07:50)
DX: S72.002A Fracture of unspecified part of neck of left femur, initial encounter for closed fracture (principal); W10.9XXA Fall (on) (from) unspecified stairs and steps, initial encounter; Z79.02 Long term (current) use of antithrombotics/antiplatelets; I25.10 Atherosclerotic heart disease of native coronary artery without angina pectoris; Z95.5 Presence of coronary angioplasty implant and graft; I10 Essential (primary) hypertension; E55.9 Vitamin D deficiency, unspecified
CPT/HCPCS: 36415; 51702; 71045; 73501; 73502; 80048; 80053; 85025; 85378; 85610; 86850; 86900; 96372; 96374; 96376; 97110; 97116; 97161; 97166; 97530; 99285; C1713; C1776; C9113; J0131; J0690; J1100; J1170; J1200; J1650; J2270; J2405; J2704; J2710; J3010; J3370; J3490; J7030; J7120